=== PATIENT | female | born 1950 | race Caucasian/White ===

== ENCOUNTER → 2016-10-27 | Outpatient (CLI) | payer MEDICARE, OTHER ==
--- NOTE | 2016-10-27 15:56 | RADRPT ---
PROCEDURE: XR Knee 4 Views. CLINICAL INDICATION: Right knee pain. TECHNIQUE: AP, lateral sunrise and oblique view of the right knee were obtained. The images review ed on a PACS workstation. COMPARISON: None. FINDINGS: Osteopenia is identified. The osseous structures are intact. No destructive bony lesions are obser jose. Interosseous spaces are normal. Soft tissues are unremarkable. IMPRESSION: Osteopenia. Otherwise, unremarkable exam. If further characterization is needed CT or MRI could be helpful. If there is high clinical suspicion for traumatic injury, further evaluation with CT should be consi dered. RPTAT: AA .Sesar Armas MD, MD Date Time Electronically viewed and signed by .Sesar Armas MD, MD on 10/27/2016 15:56 .P/
== END | disposition home or self-care (01) ==
LOC: HKI 14:24
PROVIDERS: ATTEND Orthopaedic Surgery
DX: M25.561 Pain in right knee (principal); M22.41 Chondromalacia patellae, right knee
CPT/HCPCS: 20610; 73564; G0463; J1030